=== PATIENT | female | born 1995 | race Caucasian/White ===

== ENCOUNTER 2019-08-23 09:25 | Outpatient (CLI) | payer OTHER, SELFPAY ==
[2019-08-23 09:39] LABS: Basophils Absolute Auto 0.04 K/mm3 (0.00-0.10); Basophils Percent Auto 0.5 % (0.0-1.0); Eosinophils Absolute Auto 0.13 K/mm3 (0.02-0.50); Eosinophils Percent Auto 1.6 % (1.0-6.0); Hematocrit 40.1 % (35.0-49.0); Immature Granulocyte Absolute 0.04 K/mm3 (0.00-0.00); Immature Granulocyte Percent A 0.5 % (0.0-0.0); Lymphocytes Absolute Auto 2.77 K/mm3 (1.10-4.50); Lymphocytes Percent Auto 34.2 % (18.0-42.0); Mean Corpuscular HGB Conc 32.4 g/dL (32.0-36.0); Mean Corpuscular Volume 86.4 fL (78.0-102.0); Mean Platelet Volume 9.1 fl (9.2-11.8); Monocytes Absolute Auto 0.42 K/mm3 (0.10-0.90); Monocytes Percent Auto 5.2 % (2.0-11.0); Neutrophils Absolute Auto 4.7 K/mm3 (1.7-7.2); Platelet Count Result 288 K/mm3 (150-420); Red Blood Count 4.64 M/mm3 (4.20-5.40); Red Cell Distribution Width 13.5 % (11.6-14.4); White Blood Count 8.1 K/mm3 (4.8-10.8)
[2019-08-23 09:53] LABS: Hemoglobin A1C 5.5 % (<5.7)
[2019-08-23 10:41] LABS: Alanine Aminotransferase 18 U/L (14-59); Albumin Level 3.3 g/dL (3.4-5.0); Alkaline Phosphatase 58 U/L (46-116); Anion Gap 14.3 mmol/L (7-16); Aspartate Amino Transferase 12 U/L (15-37); Bilirubin,Total 0.2 mg/dL (0.00-1.00); Blood Urea Nitrogen 10 mg/dL (7-18); Calcium 8.8 mg/dL (8.5-10.1); Carbon Dioxide 26 mmol/L (21-32); Chloride 106 mmol/L (98-108); Estimated Glomerular Filt Rate > 60; Glucose 84 mg/dL (70-99); Osmolality Calculated 292 mOsm/kg (285-295); Potassium 4.3 mmol/L (3.5-5.1); Sodium 142 mmol/L (136-145); Thyroid Stimulating Hormone 3.81 uIU/mL (0.36-3.74); Total Protein 7.5 g/dL (6.4-8.2)
[2019-08-25 18:13] LABS: Vitamin D 25 Hydroxy 10 ng/mL (30-100)
== END 2019-08-23 09:26 | disposition home or self-care (01) ==
LOC: CHSLAB 09:29
PROVIDERS: PCP Nurse Practitioner Family; Visit Provider Nurse Practitioner Family
DX: R63.5 Abnormal weight gain (principal); E66.01 Morbid (severe) obesity due to excess calories
CPT/HCPCS: 36415; 80053; 82306; 83036; 84443; 85025

== ENCOUNTER 2019-09-19 14:49 | Outpatient (CLI) | payer SELFPAY ==
[2019-09-19 17:25] LABS: Thyroid Stimulating Hormone 1.16 uIU/mL (0.36-3.74)
[2019-09-22 21:17] LABS: Vitamin D 25 Hydroxy 16 ng/mL (30-100)
== END 2019-09-19 14:50 | disposition home or self-care (01) ==
PROVIDERS: PCP Nurse Practitioner Family; Visit Provider Nurse Practitioner Family
DX: E55.9 Vitamin D deficiency, unspecified (principal); E03.9 Hypothyroidism, unspecified
CPT/HCPCS: 36415; 82306; 84443

== ENCOUNTER 2019-11-21 21:17 | Emergency (ER) | payer BC, SELFPAY ==
[2019-11-21 21:27] VITALS: BP 167/98; PULSE 108; RESP 23; TEMP 36.9; O2SAT 99
--- NOTE | 2019-11-21 21:35 | ED.BACK ---
HPI - Back Pain/Injury General Chief Complaint: Back Pain/Injury Stated Complaint: back pain Source: patient Mode of arrival: ambulatory Limitations: no limitations History of Present Illness HPI Narrative: this is a 24-year-old female that presents with some lower back pain with some muscle spasms has similar episodes in the past does do some minor lifting and has caused some low back pain the L4 bilateral paraspinal area tender with palpation with no radiation into her arm and her legs with no numbness or tingling, no dysuria no abdominal pain no urinary frequency no fever or chills no nausea vomiting. MD elicited complaint: back pain Pertinent past history: prior back pain Onset (ago): day(s) Timing: constant Severity: moderate Pain scale (0-10): 5 Similar Symptoms Previously: Yes Quality: spasming Location: right lower back and left lower back Radiation: none Exacerbating factors: movement Relieving factors: immobilization Context: while lifting, turning/twisting and bending Associated symptoms: denies other symptoms Related Data Allergies Allergy/AdvReac Type Severity Reaction Status Date / Time No Known Allergies Allergy Unverified 08/23/19 08:53 Review of Systems Review of Systems: All systems reviewed & are unremarkable except as noted in HPI and below PMFSH Past Medical History Medical History Migraines Obesity, Class III, BMI 40-49.9 (morbid obesity) Vitamin D deficiency Surgical History Surgical History H/O oral surgery Family History Family History Father Hypertension Hyperlipidemia Social History Social History Smoking status: Never smoker Alcohol intake: current Substance use: never Substance use type: does not use Gender identity (if verbalized by the patient): Female Spiritual care concerns: No Exam Const: General: no acute distress Neck: Neck: normal visual inspection Chest: Chest palpation & inspection: normal inspection of the chest Resp: Effort & Inspection: normal respiratory effort Auscultation: clear to auscultation bilaterally Cardio: Rate: regular rate Rhythm: regular rhythm GI: Auscultation: normal bowel sounds : General: Yes no CVA tenderness Back/Spine/Pelvis: Back: no CVA tenderness Skin: General skin exam: normal color Rashes: no rashes Neuro: General: patient oriented x3 Extrem: Other: L4 bilateral paravertebral tenderness with muscle spasm with no radiculopathy Psych: Appearance: grossly normal and well kempt Mental Status: mental status grossly normal Affect: normal affect Course Vital Signs Vital signs: Vital Signs Temperature 36.9 C 11/21/19 21:27 Pulse Rate 108 H 11/21/19 21:27 Respiratory Rate 23 H 11/21/19 21:27 Blood Pressure 167/98 H 11/21/19 21:27 Pulse Oximetry 99 11/21/19 21:27 Temperature 36.9 C 11/21/19 21:27 Pulse Rate 108 H 11/21/19 21:27 Respiratory Rate 23 H 11/21/19 21:27 Blood Pressure 167/98 H 11/21/19 21:27 Pulse Oximetry 99 11/21/19 21:27 Critical Care Time Critical Care Time Critical Care Time: No Discharge Plan Discharge Clinical Impression: Muscle spasm of back Back pain Qualifiers: Back pain location: low back pain Chronicity: acute Back pain laterality: bilateral Sciatica presence: without sciatica Qualified Code(s): M54.5 - Low back pain Patient Disposition: Home, Self-Care Condition: Stable Instructions: Antibiotic Form, Back Pain (ED) Additional Instructions: take medicine as prescribed and follow-up primary care physician if symptoms persist or worsen. Prescriptions: No Action norgestimate-ethinyl estradiol [Sprintec (28)] 0.25-35 mg-mcg tablet 1 tablet PO DAILY Qty: 84 RF: 0 cholecalciferol (vitamin D3) [Mary Lou
[2019-11-21] MEDS: KETOROLAC (*BKC) 60 MG/2 ML VIAL IM (21:39)
[2019-11-21] MEDS: CYCLOBENZAPRINE HCL 10 MG TABLET PO (21:48)
[2019-11-21 21:57] VITALS: BP 156/92
== END 2019-11-21 21:58 | disposition home or self-care (01) ==
PROVIDERS: Emergency Provider Emergency Medicine; PCP Nurse Practitioner Family
DX: M62.830 Muscle spasm of back (principal); M54.5 Low back pain
CPT/HCPCS: 96372; 99282; 99283; A9270; J1885

== ENCOUNTER 2019-12-08 10:31 | Outpatient (CLI) | payer SELFPAY ==
[2019-12-08 11:51] LABS: Thyroid Stimulating Hormone 3.15 uIU/mL (0.36-3.74)
[2019-12-08 12:20] LABS: HIV 1 P24 AG Negative (Negative); HIV 1/2 AB Negative (Negative)
[2019-12-11 03:30] LABS: Hepatitis A Antibody IgM Nonreactive; Hepatitis B Core Antibody Nonreactive (Nonreactive); Hepatitis B Surface Antigen Nonreactive (Nonreactive); Hepatitis C Signal to Cutoff 0.02 ratio (<1.00); Hepatitis C Virus Antibody Nonreactive (Nonreactive)
[2019-12-11 16:43] LABS: RPR Screen Non-Reactive (Non-Reactive)
== END 2019-12-08 10:32 | disposition home or self-care (01) ==
PROVIDERS: Nurse Practitioner Family; PCP Family Medicine; Visit Provider Family Medicine
DX: N76.0 Acute vaginitis (principal); E03.9 Hypothyroidism, unspecified
CPT/HCPCS: 36415; 80074; 84443; 86592; 86703; 87070; 87210; 87491; 87591; 87661

== ENCOUNTER 2020-04-27 14:46 | Emergency (ER) | payer BC, SELFPAY ==
--- NOTE | ~2020-04-27 | XR_ITS ---
EXAMINATION: XR ankle LT min 3V DATE: 04/27/2020 15:09 INDICATION: Left ankle pain post twisting injury TECHNIQUE: Anteroposterior, oblique, mortise, and lateral views of the left ankle were obtained. COMPARISON: None. FINDINGS: Alignment is normal. No fracture. Joint spaces are well maintained. No ankle joint effusion. Soft t issue swelling about the lateral malleolus. IMPRESSION: 1. No osseous abnormality. Reviewed, dictated and finalized at location B. IMPRESSION: 1. No osseous abnormality.
[2020-04-27 14:46] VITALS: BP 160/86; PULSE 82; RESP 16; TEMP 36.6; O2SAT 98
--- NOTE | 2020-04-27 14:50 | ED.LOWEXIN ---
HPI - Extremity Injury (Lower) General Chief Complaint: Extremity Injury, Lower Stated Complaint: L ankle pain Time Seen by Provider: 04/27/20 14:51 Source: patient and RN notes reviewed Mode of arrival: ambulatory Limitations: no limitations History of Present Illness HPI Narrative: patient states she was walking through her living room last evening and her ankle just twisted with a inversion injury. Today she is having more difficulty walking swelling. complaint: ankle injury Onset (ago): day(s) (1) Injury: Left: ankle Type of Injury: inversion Place: home Severity: moderate Relieving factors: NSAID (Last night) Exacerbating factors: weight bearing, movement and palpation Context: walking Associated symptoms: snap/pop sensation and swelling Other symptoms: none Related Data Allergies Allergy/AdvReac Type Severity Reaction Status Date / Time No Known Allergies Allergy Verified 01/18/20 09:09 Review of Systems Review of Systems: All systems reviewed & are unremarkable except as noted in HPI and below PMFSH Past Medical History Medical History Migraines Obesity, Class III, BMI 40-49.9 (morbid obesity) Vitamin D deficiency Surgical History Surgical History H/O oral surgery Family History Family History Father Hypertension Hyperlipidemia Social History Social History Smoking status: Never smoker Tobacco type: cigarettes Alcohol intake: current Substance use: never Substance use type: does not use Gender identity (if verbalized by the patient): Female Spiritual care concerns: No Exam Const: General: healthy appearing, no acute distress and alert Nutritional Appearance: obese morbidly obese Orientation/consciousness: patient oriented x3 Other: female nurse in room during examination. HENMT: Head: normal to inspection Ears: external ears normal Eyes: Conjunctivae: conjunctivae normal Pupils: Equal, round and reactive pupils present EOM: EOMs intact bilaterally Neck: Neck: normal visual inspection Resp: Effort & Inspection: normal respiratory effort Auscultation: clear to auscultation bilaterally Cardio: Rate: regular rate Rhythm: regular rhythm GI: GI Palp: Yes Soft to palpation Auscultation: normal bowel sounds Back/Spine/Pelvis: Cervical Spine: cervical ROM normal Thoracic/Lumbar Spine: thoraco-lumbar ROM normal Skin: General skin exam: normal color Rashes: no rashes Neuro: General: patient oriented x3, moves all extremities and no focal motor deficits Speech: normal speech Gait exam (Neuro): Normal gait present ( Limping gait) Extrem: General: no clubbing, cyanosis or edema Left lower extremity: ankle Details: tenderness Location: of the anterior talofibular ligament (Moderate), swelling Details: laterally and abnormal ROM Details: pain with active ROM Details: with plantar flexion, with inversion and with eversion; no warmth Psych: Appearance: grossly normal and well kempt Mental Status: mental status grossly normal Affect: normal affect Attitude: cooperative Thought content: Yes Normal thought content present Discharge Plan Discharge Prescriptions: No Action norgestimate-ethinyl estradiol [Sprintec (28)] 0.25-35 mg-mcg tablet 1 tablet PO DAILY Qty: 84 RF: 0 cholecalciferol (vitamin D3) [Vitamin D3] 50 mcg (2,000 unit) capsule 2,000 unit PO DAILY Qty: 30 RF: 0 levothyroxine 25 mcg tablet 25 mcg PO DAILY Qty: 90 RF: 0
--- NOTE | 2020-04-27 15:20 | PC.NURSE ---
AIR CAST AND NIYAH WRAP PLACED TO LEFT ANKLE PER ERP VERBAL ORDERS.
[2020-04-27 15:28] VITALS: RESP 14; O2SAT 99
== END 2020-04-27 15:30 | disposition home or self-care (01) ==
PROVIDERS: Emergency Provider Emergency Medicine; PCP Nurse Practitioner Family
DX: S93.402A Sprain of unspecified ligament of left ankle, initial encounter (principal); X50.1XXA Overexertion from prolonged static or awkward postures, initial encounter
CPT/HCPCS: 29515; 73610; 99282; 99283; L2112

== ENCOUNTER 2020-06-26 15:25 | Outpatient (CLI) | payer BC, SELFPAY ==
[2020-06-26 17:03] LABS: Thyroid Stimulating Hormone 1.87 uIU/mL (0.36-3.74)
== END 2020-06-26 15:26 | disposition home or self-care (01) ==
PROVIDERS: PCP Nurse Practitioner Family; Visit Provider Nurse Practitioner Family
DX: E03.9 Hypothyroidism, unspecified (principal)
CPT/HCPCS: 36415; 84443

== ENCOUNTER 2020-11-30 12:24 | Outpatient (CLI) | payer OTHER, SELFPAY ==
[2020-11-30 14:06] LABS: Thyroid Stimulating Hormone 1.87 uIU/mL (0.36-3.74)
== END 2020-11-30 12:25 | disposition home or self-care (01) ==
LOC: CHSLAB 12:27
PROVIDERS: PCP Nurse Practitioner Family; Visit Provider Nurse Practitioner Family
DX: E03.9 Hypothyroidism, unspecified (principal)
CPT/HCPCS: 36415; 84443

== ENCOUNTER 2021-04-27 10:36 | Emergency (ER) | payer OTHER, SELFPAY ==
[2021-04-27 11:06] VITALS: BP 158/98; PULSE 80; RESP 16; TEMP 36.1; O2SAT 100
--- NOTE | 2021-04-27 11:30 | ED.GENADULT ---
HPI - General Adult General Chief complaint: Upper Respiratory Infection Stated complaint: jaw pain, congestion, stuffy nose, sore throat Time Seen by Provider: 04/27/21 10:46 Source: patient and RN notes reviewed Mode of arrival: ambulatory Limitations: no limitations History of Present Illness complaint: Pt said bilateral upper molar toothache was her primary sxs. she also had Onset (ago): day(s) (5) Location: mouth Radiation: non-radiation Severity: mild Severity scale (1-10): 5 Quality: aching and dull Pain Consistency: constant Relieving factors: none Exacerbating factors: eating Associated symptoms: denies other symptoms Related Data Allergies Allergy/AdvReac Type Severity Reaction Status Date / Time No Known Allergies Allergy Verified 11/20/20 08:00 Review of Systems Review of Systems: All systems reviewed & are unremarkable except as noted in HPI and below ENT: Comments: toothache and sinus congestio. [facility] Past Medical History Medical History Migraines Obesity, Class III, BMI 40-49.9 (morbid obesity) Vitamin D deficiency Surgical History Surgical History H/O oral surgery Family History Family History Father Hypertension Hyperlipidemia Social History Social History Smoking status: Never smoker Tobacco type: cigarettes Alcohol intake: current Alcohol use details: social Substance use: never Substance use type: does not use Gender identity (if verbalized by the patient): Female Spiritual care concerns: No Exam Const: General: no acute distress and alert Nutritional Appearance: obese Orientation/consciousness: patient oriented x3 Limitations: no limitations HENMT: Ears: TM's normal bilaterally General nose exam: Normal external nose present and Normal nares present Mouth: Yes moist mucous membranes Other: mild gingivitis. mild facial tenderness. Eyes: Conjunctivae: conjunctivae normal Pupils: Equal, round and reactive pupils present EOM: EOMs intact bilaterally Neck: Neck: normal visual inspection and no lymphadenopathy Chest: Chest palpation & inspection: normal inspection of the chest Resp: Effort & Inspection: normal respiratory effort Auscultation: clear to auscultation bilaterally Cardio: Rate: regular rate Rhythm: regular rhythm GI: GI Palp: Yes Soft to palpation, No Tenderness to palpation present (GI) and Yes Rebound tenderness present Auscultation: normal bowel sounds : General: Yes no CVA tenderness Back/Spine/Pelvis: Back: no CVA tenderness Skin: General skin exam: normal color Neuro: General: patient oriented x3, moves all extremities, no meningeal signs, no focal motor deficits and CN's II-XI intact bilaterally Extrem: General: normal to inspection Psych: Appearance: grossly normal and well kempt Mental Status: mental status grossly normal Thought content: Yes Normal thought content present Course Course Emergency Course: pt was stable in the ed. Reevaluation(s) Date: 04/27/21 Time: 11:29 Vital Signs Vital signs: Vital Signs Temperature 36.1 C L 04/27/21 11:06 Pulse Rate 80 04/27/21 11:06 Respiratory Rate 16 04/27/21 11:06 Blood Pressure 158/98 H 04/27/21 11:06 Pulse Oximetry 100 04/27/21 11:06 Temperature 36.1 C L 04/27/21 11:06 Pulse Rate 80 04/27/21 11:06 Respiratory Rate 16 04/27/21 11:06 Blood Pressure 158/98 H 04/27/21 11:06 Pulse Oximetry 100 04/27/21 11:06 Medical Decision Making Differential Diagnosis Differential Diagnosis: toothache, sinusitis Medical Records Medical records reviewed: Yes I reviewed the external patient's medical records. Vital Signs Vital Signs: Vital Signs Temperature 36.1 C L 04/27/21 11:06 Pulse Rate 80 04/27/21 11:06 Re
[2021-04-27 11:50] VITALS: RESP 20; O2SAT 100
== END 2021-04-27 12:00 | disposition home or self-care (01) ==
PROVIDERS: Emergency Provider Emergency Medicine; PCP Nurse Practitioner Family
DX: K08.89 Other specified disorders of teeth and supporting structures (principal); J32.9 Chronic sinusitis, unspecified; E55.9 Vitamin D deficiency, unspecified
CPT/HCPCS: 99283

== ENCOUNTER 2021-05-20 12:34 | Outpatient (CLI) | payer OTHER, SELFPAY ==
[2021-05-20 13:46] LABS: Thyroid Stimulating Hormone Reflex 1.83 u/IU/mL (0.36-3.74)
== END 2021-05-20 12:35 | disposition home or self-care (01) ==
LOC: CHSLAB 12:36
PROVIDERS: PCP Nurse Practitioner Family; Visit Provider Nurse Practitioner Family
DX: E03.9 Hypothyroidism, unspecified (principal)
CPT/HCPCS: 36415; 84443